=== PATIENT | female | born 1965 | race Caucasian/White ===

== ENCOUNTER 2016-05-26 01:03 | Inpatient (IN) | payer OTHER ==
[~2016-05-26] VITALS: Ht 167.6 cm; Wt 77.9 kg
--- NOTE | ~2016-05-26 | DS ---
PATIENT'S NAME: LEVY COULTER [facility] AGE: 50 Y [address] ROOM: [address] [address] LOCATION: G3N ADMIT DATE: 05/26/2016 Discharge Summary DISCHARGE DATE: 05/27/2016 FAMILY PHYSICIAN: Shelia Noel Beaver Trapper ATTENDING PHYSICIAN: Felice Bunn PRINCIPAL DIAGNOSES: 1. Acute pancreatitis. 2. Abdominal pain secondary to acute pancreatitis. 3. Depression. 4. Allergic rhinitis. HOSPITAL COURSE: Please reference any of the admitting data to the history and physical dictated by Dr. Bunn. This is a 50-year-old female, who came in with abdominal pain and significantly elevated pancreatic enzymes with an amylase of 1566 and lipase of 26,090, and evidence of acute pancreatitis noted on the CT scan of the abdomen and pelvis. Further evaluation done in the emergency room included an ultrasound of her abdomen, which did not show any cholelithiasis or cholecystitis. There was no intrahepatic or extrahepatic biliary dilatation. She also had a CT per PE protocol done, which was also negative. She was admitted and treated symptomatically. She was kept nothing by mouth. She was given antinausea and IV analgesia. She was given aggressive IV fluid hydration. Further investigation of the pancreatitis showed a triglyceride level of 62, inflammatory markers were negative. Rheumatoid factor was negative. She did have some subclinical hypothyroidism with a TSH of 6.020 but normal free T4 of 1.0. We did not feel it was related to alcohol. Further labs for autoimmune pancreatitis were sent and were pending at the time of this dictation. She progressed rather quickly. Gastroenterology consultation was obtained. Continued conservative observation. By the next day, her amylase and lipase fell to 273 and 909 respectively. She was started on a clear liquid diet and advanced as tolerated without any complications. Because of the quick turn around, it was felt that she was stable enough to return to home with further investigation warranted as an outpatient of her pancreatitis. She will need follow of the autoimmune laboratory findings as well as the potential for referral for an endoscopic ultrasound as there was maybe concern of biliary microlithiasis. DVT prophylaxis was maintained by pneumatic compression devices early and often ambulation. RADIOLOGY DATA: Chest x-ray showed no acute findings. CT of the abdomen and pelvis showed mesenteric inflammatory changes with a small volume of the adjacent fluid at the area of the pancreatic body and tail with slight wall PATIENT'S NAME: LEVY COULTER [facility] AGE: 50 Y [address] ROOM: [id number] [place], [place] [address] LOCATION: G3N ADMIT DATE: 05/26/2016 Discharge Summary DISCHARGE DATE: 05/27/2016 FAMILY PHYSICIAN: Shelia Noel Beaver Trapper ATTENDING PHYSICIAN: Felice Bunn thickening in the adjacent duodenum. There was also noted small volume free fluid in the pelvis, and a past history of hysterectomy. CT per PE protocol was negative. An abdominal ultrasound did not show any cholelithiasis or cholecystitis. There was no intrahepatic or extrahepatic biliary dilatation. LABORATORY FINDINGS: Her initial lactate was 2.2. Cardiac enzymes were negative. ProBNP was negative. White blood cells were normal. Hemoglobin was 15.0 and hematocrit of 43.9, and platelet count of 243. Chemistry panel revealed a glucose of 102, BUN of 8, creatinine 0.8, sodium 144, potassium 4.0, chloride 111, CO2 of 20, calcium 8.2. Liver function showed an AST of 33, ALT of 48, alkaline phosphatase of 69, total bilirubin of 0.4, direct bilirubin less than 0.1. Sedimentation rate was 5, CRP was 0.36, quantitative rheumatoid factor was less than 10. TSH was 6.020 and a free T4 1.0. Procalcitonin level was negative. Amylase level of 1566 to 273 and a lipase level of 26,090 to 909. IgG autoimmune laboratory findings are pending. CONSULTING PROVIDERS: Gastroenterology, Dr. Barrington Kirk. DISCHARGE MEDICATIONS: 1. Lexapro 10 mg p.o. every day. 2. Advil 600 mg p.o. every 6 hours as needed. 3. Flonase 50 mcg per puff one spray per nostril every day as needed. 4. Tessalon Perles 100 mg p.o. twice daily as needed. 5. Valtrex 500 mg p.o. 4 times daily as needed for cold sores. 6. Multivitamin 1 tablet p.o. every day. 7. Vitamin D3 1000 units p.o. every morning. DISCHARGE INSTRUCTIONS: The patient will be discharged to home. Her diet will be without restriction. Her activity will be without restriction. She was given a prescription for return to work on 05/29/2016 without any restrictions. She is to follow up with Dr. Noel at [facility] on Thursday June 02, 2016, at 10:00 a.m. She also needs to follow up with Thuy Bach, nurse-practitioner at [facility] on Friday June 10, 2016, at 1:00 p.m. to follow up on autoimmune labs and possible referral for endoscopic ultrasound. She was given education on her medications, and to call if there is any increase in pain or changes in her condition. Thank you for allowing us to participate in the care of this patient while at [facility]. DEB BRAVO APRN, APRN FOR SHIRIN RAYMUNDO MD PATIENT'S NAME: LEVY COULTER [facility] AGE: 50 Y [address] ROOM: [place] [address] LOCATION: [facility] ADMIT DATE: 05/26/2016 Discharge Summary DISCHARGE DATE: 05/27/2016 FAMILY PHYSICIAN: Shelia Noel Beaver Trapper ATTENDING PHYSICIAN: Felice Bunn/carmela /[id number] CC: Shelia Noel, Beaver Trapper Thuy Bach APRN d: t: 05/28/16 0451, DISCHARGE SUMMARY
--- NOTE | ~2016-05-26 | ER ---
PATIENT'S NAME: LEVY COULTER [facility] AGE: 50 Y [address] ROOM: [address] [address] LOCATION: [facility] ADMIT DATE: 05/26/2016 ER/Outpatient Report DISCHARGE DATE: FAMILY PHYSICIAN: BEVERLEY CANAS Sack Sorter ATTENDING PHYSICIAN: YOHAN RODRIGUEZ ADDENDUM: This patient is a 50-year-old female who comes in with severe epigastric pain that woke her up from sleep at midnight tonight. She came here to the emergency room. I did the evaluation. Her cardiac and pulmonary tests were normal. Her chest x-ray was normal. All of her lab was okay. Her ultrasound of the gallbladder was negative. She has no history of alcoholism but did have an elevated amylase and lipase that came back about half hour to an hour after the patient was dismissed home. Her amylase was elevated at 1566, her lipase was elevated at 26,090. I did call her back and told her to come back to the emergency department to be admitted with a diagnosis of acute pancreatitis. The patient did come back to the emergency department. We did place her in a room, started on IV normal saline, and aidan a lipid panel. Scheduled her for a CT scan of the abdomen and pelvis with IV contrast as well as a CT scan of the chest with PE protocol IV contrast. I did talk with Dr. Rodriguez, hospitalist. The patient will be admitted to the hospital for further evaluation and treatment. IMPRESSION: Acute pancreatitis. PLAN: Discussed with the patient and her my findings. She does have acute pancreatitis. Needs bowel rest and further evaluation. We will await results of CT scans. MANUELA GALVAN MD SDS/modl /[id number] d: 05/26/16 0449 t: 05/26/16 1814, OUTPATIENT REPORT
--- NOTE | ~2016-05-26 | ER ---
PATIENT'S NAME: LEVY COULTER [facility] AGE: 50 Y [address] ROOM: [place] [address] LOCATION: [facility] ADMIT DATE: 05/26/2016 ER/Outpatient Report DISCHARGE DATE: FAMILY PHYSICIAN: Shelia Noel Housetrailer Servicer ATTENDING PHYSICIAN: Marvin Maurer Admission date and time documented on the medical record. I saw the patient at 0120 hours. CHIEF COMPLAINT: Right upper quadrant abdominal pain and epigastric pain. HISTORY OF PRESENT ILLNESS: This patient is a 50-year-old female, who presented to the emergency room with pain right underneath her right lower rib cage in the right upper quadrant epigastric region. She had acute onset of pain that woke up out of sleep around midnight. Some nausea, but no vomiting or diarrhea. No urinary frequency, urgency, or dysuria. No cough. Short of breath because of the pain. No chest pain. No lightheadedness, dizziness, syncope, or near syncope. No fall or trauma. No recent colds, coughs, flus, fever, chills, or sweats. No headache, eyes, ears, nose, throat, neck, or spine pain. No joint or muscle swelling, redness, or pain. No skin eruptions or rash. No history of neuro changes, psych issues, endocrine problems. HOME MEDICATIONS: See attached medication list. ALLERGIES: SULFA. SOCIAL HISTORY: Nonsmoker. Occasional intake of alcohol. SIGNIFICANT PAST MEDICAL HISTORY: Negative. OPERATIONS: Hysterectomy. REVIEW OF SYSTEMS: All systems reviewed by me are negative with the exception of those discussed in the history of present illness. PHYSICAL EXAMINATION: VITAL SIGNS: Temperature 96.3, pulse 61, respirations 20, blood pressure PATIENT'S NAME: LEVY COULTER [facility] AGE: 50 Y [address] ROOM: [place], [place] [address] LOCATION: [facility] ADMIT DATE: 05/26/2016 ER/Outpatient Report DISCHARGE DATE: FAMILY PHYSICIAN: Shelia Noel Housetrailer Servicer ATTENDING PHYSICIAN: Marvin Maurer 140/75, O2 saturation on room air is 100%. [place] Coma Scale is 15. HEAD: Normocephalic. No abrasion, contusion, laceration, swelling of the scalp or face. EYES: Extraocular muscles intact. PERRL. EARS: Clear TMs bilaterally. NOSE: Clear. THROAT: Clear. Mucous membranes moist. Teeth, jaw intact. NECK: No nuchal rigidity. No thyromegaly or cervical lymphadenopathy. No tenderness to palpation. SPINE: Nontender. No deformity. LUNGS: Clear. Good air flow. No rales, rhonchi, or wheezes. HEART: Regular. Pulses are palpable. ABDOMEN: Soft. Some tenderness right underneath the lower rib cage in the right upper quadrant and epigastric area. No palpable masses. No organomegaly palpable. Bowel tones present. No CVA tenderness. No true guarding or rigidity. No rebound tenderness. No distention. EXTREMITIES: Intact. Neurovascularly intact. SKIN: Clear. IMAGING DATA: Chest x-ray showed no acute infiltrate or changes. We will review x-ray with the radiologist. EKG showed sinus rhythm. No acute ST elevation, ischemic change, or arrhythmia. LABORATORY DATA: White count was 8900, 53 segs, 33 lymphs, 6 monos, 7 eos, 1 baso. Hemoglobin is 15 with hematocrit 43.9, platelet count [id number], sed rate was 5, PTT was 23. ProTime is 10 with an INR 1.0. CRP was less than 0.29. TSH was 6.02. ProBNP was 109. CMS was normal except for a low CO2 content of 21, elevated glucose 107, elevated AST of 67, magnesium 1.7. CPK was 85. Point of care cardiac enzymes were normal. D-dimer was 0.6. Lactate was 2.2. Procalcitonin was 0.5. IMAGING DATA: I did do an ultrasound of the gallbladder that showed normal gallbladder. No pericholecystic fluid. No gallstones. No thickened gallbladder wall. Normal duct. Everything else looked normal of the abdomen. See dictated transcribed Radiology report. IMPRESSION: Epigastric right upper quadrant abdominal pain, etiology; uncertain most likely acute gastritis. I find no evidence of any gallbladder changes, liver changes or lab studies. Chest x-ray and heart enzymes were normal. PLAN: The patient was given IV morphine for pain, GI cocktail orally, Zofran for PATIENT'S NAME: LEVY COULTER [facility] AGE: 50 Y [address] ROOM: [place] [address] LOCATION: ED ADMIT DATE: 05/26/2016 ER/Outpatient Report DISCHARGE DATE: FAMILY PHYSICIAN: Shelia Noel Housetrailer Servicer ATTENDING PHYSICIAN: Marvin Maurer nausea, Protonix 40 mg IV in the emergency room. Discharged home. Observation. Activity as tolerated. Avoid spicy, greasy, fried foods, alcohol, nicotine caffeine. Amo diet. Continue home medications and care. Prevacid 30 mg once a day #30 and Percocet 10/325 as need for pain #16. Follow up with personal physician in 4 or 5 days or sooner if needed. Discussion ensued with the patient regarding my findings and recommendations, she understands. MD SHANTI GIFFORD/falgunil /[id number] d: 05/26/16 0408 t: 05/26/16 181, OUTPATIENT REPORT
--- NOTE | ~2016-05-26 | HP ---
PATIENT'S NAME: LEVY COULTER [facility] AGE: 50 Y [address] ROOM: [place] [address] LOCATION: [facility] ADMIT DATE: 05/26/2016 History & Physical DISCHARGE DATE: FAMILY PHYSICIAN: BEVERLEY CANAS Vial Gauger ATTENDING PHYSICIAN: YOHAN RODRIGUEZ DATE OF SERVICE: CHIEF COMPLAINT: Epigastric pain for 1 day duration. HISTORY OF PRESENT ILLNESS: This is a 50-year-old female who is generally healthy and never complaining of any chest pain or shortness of breath or epigastric pain or any abdominal pain in the past. The story is that tonight she had a pizza, about 2 slices of pizza, around 7:00 p.m. for dinner, and then she went to bed, and then around midnight, she woke up with this pain in her epigastric area, 8/10 intensity, that it feels like a stabbing type of pain with radiation to her back. The pain lasted about 10 minutes and then will go away. The pain is also associated with nausea but no vomiting. The pain went away for a while, but then it came back, that is why she came here to the emergency room for evaluation. The patient has never had this kind of pain before. The patient denies any alcohol intake, and denies ever being told she had a gallstone, and denies any gastroesophageal reflux disease from before. Her last meal was last night. Her last bowel movement was yesterday morning, and she still passes flatus. She denies any other symptoms. REVIEW OF SYSTEMS: As mentioned in the history of present illness. All other systems reviewed and negative except those mentioned in the history of present illness. PAST MEDICAL HISTORY: 1. Depression. 2. Allergy. ALLERGIES: SULFA, WHICH CAUSES RASH. HOME MEDICATIONS: She uses Flonase and takes Lexapro, doses are not known and will be reconciled with the pharmacy. SOCIAL HISTORY: The patient denies any cigarette or heavy alcohol or illegal drug use. She only occasionally drinks alcohol, and she denies any alcohol use disorder. PATIENT'S NAME: LEVY COULTER [facility] AGE: 50 Y [address] ROOM: [place] [address] LOCATION: [facility] ADMIT DATE: 05/26/2016 History & Physical DISCHARGE DATE: FAMILY PHYSICIAN: BEVERLEY CANAS Vial Gauger ATTENDING PHYSICIAN: YOHAN RODRIGUEZ PAST SURGICAL HISTORY: 1. Status post hysterectomy. 2. Status post tonsillectomy. 3. Status post right shoulder surgery from rotator cuff injury. FAMILY HISTORY: Father from multiple myeloma complication at age 70 and mother suffers from hypertension. No colon cancer and no gastrointestinal disorder in the family according to the patient. PHYSICAL EXAMINATION: VITAL SIGNS: At the time of my dictation, temperature 98, heart rate 80, blood pressure 130/80, respiration 16, and saturation 99% on room air. GENERAL APPEARANCE: Alert and oriented x3. In no acute distress. A very pleasant female. HEENT: Pupils equally round and reactive to light. Extraocular muscles intact. Anicteric sclerae. Nasal turbinates are normal bilaterally. Moist oral mucosa. No oral thrush. NECK: No JVD. No cervical lymphadenopathy. No neck stiffness. CARDIOVASCULAR: Regular rate and rhythm. Normal S1, S2. No murmurs, no rubs, no gallops. RESPIRATORY: Clear. ABDOMEN: Soft, mild tenderness to palpation in the epigastrium and in the right upper quadrant. No rebound tenderness. No abdominal rigidity. Bowel sounds present. Could not appreciate any hepatosplenomegaly. EXTREMITIES: No edema in the upper or lower extremities. NEUROLOGIC: Grossly nonfocal. SKIN: No ulcer, no rash, no cyanosis. MUSCULOSKELETAL: No joint pain. No muscle pain. Range of motion intact. LABORATORY DATA: Lactic acid 2.2. CPK 85. Troponin is less than 0.04. ProBNP 109. White blood cells 8.7, hemoglobin 15, hematocrit 43.9, MCV 93.2, platelets 243. Glucose 107. BUN 17, creatinine 1.0, sodium 143, potassium 3.7, chloride 109, CO2 of 21, calcium 9.2, total protein 7.1, albumin 3.7, AST 67, ALT 52, alkaline phosphatase 88, total bilirubin 0.3, magnesium 1.7, anion gap 16.7, GFR 58, ESR 5. Total cholesterol 164, triglycerides 62, HDL 65, LDL 87, VLDL 12. INR 1.0, PTT 23. Procalcitonin less than 0.05. CRP is less than 0.029. TSH 6.02. CK-MB 0.8. Lipase 26,090, amylase 1566. D-dimer 0.6. IMAGING STUDIES: EKG on admission showed sinus bradycardia, heart rate at 58 beats per minute with normal PA at 197, normal QRS at 94, normal QTc at 399, and no acute ischemia. PATIENT'S NAME: LEVY COULTER [facility] AGE: 50 Y [address] ROOM: [place] [address] LOCATION: [facility] ADMIT DATE: 05/26/2016 History & Physical DISCHARGE DATE: FAMILY PHYSICIAN: BEVERLEY CANAS Vial Gauger ATTENDING PHYSICIAN: YOHAN RODRIGUEZ Chest x-ray on admission, official report is pending, based on my review unremarkable. Ultrasound of the abdomen performed in the emergency room, official report is pending, but based on the documentation in the ER note, it was unremarkable. Again, this is based on the ER report written by the ER physician. Please follow up on the official report this morning. CT pulmonary angiogram on admission, preliminary report shows peripancreatic inflammatory changes suggesting acute pancreatitis. No pulmonary emboli. Mild mediastinal lymphadenopathy. CT of abdomen and pelvis with IV contrast on admission: The preliminary report shows mild inflammatory changes and a small free fluid adjacent to the pancreatic body and the tail. Mild wall thickening of the distal duodenum. Findings likely represent acute pancreatitis with reactive wall thickening of the duodenum. However, primary duodenitis is not excluded. Small pelvic free fluid. Hysterectomy. ASSESSMENT AND PLAN: 1. Acute pancreatitis with a possible reactive wall thickening of the duodenum; however, cannot exclude primary duodenitis: Currently, the cause of the pancreatitis is not clear. She does not drink alcohol. She does not have gallstone based on the preliminary report of the ultrasound of the abdomen performed today. Her home medications do not cause pancreatitis either. Her triglyceride level is also not more than 1000. She has no obvious risk factor for pancreatitis. I suspect she might be suffering from autoimmune pancreatitis or even with pancreatic divisum. I will get a GI consult. I will treat her conservatively with n.p.o. and IV fluids hydration, and also pain control with IV morphine p.r.n. and IV fentanyl p.r.n. I will check IgG4 in the serum to look for autoimmune pancreatitis. Further plan depends on clinical course and per GI evaluation. She does not look septic. There is no necrosis on the CT scan, preliminary report of the pancreatitis; therefore, I am not going to start any antibiotics. The duodenitis could be primary or could be from reactive wall thickening of the duodenum. I will defer evaluation per Gastroenterology and also follow up on the official report of the CT abdomen and pelvis and ultrasound of the abdomen and also CT pulmonary angiogram once the report becomes official. 2. Regarding her possible hypothyroidism: Her TSH is elevated. This is consistent with hypothyroidism. However, I am going to check her free T4 to make sure this is not a subclinical hypothyroidism. Therefore, I will check a free T4, and then depend on the level, we can decide about treatment. PATIENT'S NAME: LEVY COULTER [facility] AGE: 50 Y [address] ROOM: [place] [address] LOCATION: [facility] ADMIT DATE: 05/26/2016 History & Physical DISCHARGE DATE: FAMILY PHYSICIAN: BEVERLEY CANAS Vial Gauger ATTENDING PHYSICIAN: YOHAN RODRIGUEZ 3. Depression: Continue her home medication with Lexapro. 4. Allergic rhinitis: Continue with Flonase. 5. Prophylaxis: Compression devices and heparin subcu. Time spent in care on the day of admission 40 minutes including chart review, interviewing and examining the patient, addressing all the questions and concerns the patient had, and going over the plan of care with the patient and the patient's . YOHAN RODRIGUEZ MD CC/modl /[id number] D: [id number] T: [id number] HISTORY & PHYSICAL
--- NOTE | ~2016-05-26 | CON ---
PATIENT'S NAME: LEVY COULTER [facility] AGE: 50 Y [address] ROOM: [address] [address] LOCATION: [id number] ADMIT DATE: 05/26/2016 Consultation DISCHARGE DATE: FAMILY PHYSICIAN: BEVERLEY CANAS Electronic Heat Seal Operator ATTENDING PHYSICIAN: FELICE RODRIGUEZ DATE OF CONSULTATION: 05/26/2016 REFERRING PHYSICIAN: LEOLA MAYORGA MD REFERRING PROVIDER: Felice Rodriguez MD REASON FOR CONSULTATION: Acute pancreatitis. HISTORY OF PRESENT ILLNESS: This is a very pleasant, 50-year-old female who is generally healthy and works at [employer]. She does state that yesterday evening she had 2 slices of pizza around 7 o'clock p.m. for dinner. She went to bed. Around midnight, she woke up with intense mid epigastric discomfort, rating it 8/10. She describes the pain as stabbing pain with radiation into her back. The pain was intermittent for approximately 10 minutes and then did go away. After a while, it retreated back with associated nausea. She denies vomiting at that time, fever, or chills. The patient denies any previous episodes of pain like this. She then presented to the emergency room for further workup. An abdominal ultrasound was completed, showing no cholelithiasis and no intrahepatic or extrahepatic biliary dilation. On analysis completed in the emergency room of lab, she was found to have a significantly elevated lipase at 26,090. Amylase was 1566. Triglyceride level was okay at 62. ESR was 5. Lactate was 2.2. Calcium was 9.2. The patient was then admitted for acute pancreatitis workup and treatment. The patient was seen and examined. Again, she denies any history of pancreatitis and/or family history of any known pancreatitis. The patient also denies any alcohol intake. Denies any history of gallstone or gastroesophageal reflux disease. The patient does state that she had a normal bowel movement the day prior to admission. She currently is passing flatus. She denies any fever or chills. She does state that her abdominal pain has significantly improved since the initial episode began. The patient currently denies any chest pain, chest pressure, shortness of breath, fever, chills, night sweats, or unplanned weight loss. The patient also denies any history of upper endoscopy or colonoscopy. PAST MEDICAL HISTORY: Depression and allergies. PATIENT'S NAME: LEVY COULTER [facility] AGE: 50 Y [address] ROOM: [address] [address] LOCATION: [facility] ADMIT DATE: 05/26/2016 Consultation DISCHARGE DATE: FAMILY PHYSICIAN: BEVERLEY CANAS Electronic Heat Seal Operator ATTENDING PHYSICIAN: FELICE RODRIGUEZ PAST SURGICAL HISTORY: No history of upper endoscopy or colonoscopy. Hysterectomy, tonsillectomy, and right shoulder surgery from rotator cuff injury. 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 She denies any cigarette, alcohol, or illicit drug use. She does state that she drinks alcohol on a very limited social basis, though denies any alcohol use disorder. FAMILY HISTORY: The patient's father from multiple myeloma at the age of 70. The patient's mother suffers from hypertension. She denies any gastrointestinal diseases or cancers. ALLERGIES: SULFA AND SULFAMETHOXAZOLE. CURRENT MEDICATIONS: Please refer to the medication administration record. REVIEW OF SYSTEMS: A 10-point review of systems was completed, all were negative except for those identified in the History of Present Illness. PHYSICAL EXAMINATION: GENERAL: A very pleasant, 50-year-old female who appears to be in no acute distress. VITAL SIGNS: Temperature 97.8, pulse of 56, respirations of 15, blood pressure 105/63, and oxygen saturation is 99% for room air. SKIN: Sophia, warm, and dry. No jaundice. HEENT: Head is normocephalic and atraumatic. Pupils are equal, round, and reactive to light. Sclerae are clear, nonicteric. Oral mucosa is pink and moist. No thyromegaly. NECK: Soft and supple. CARDIOVASCULAR: Regular. Normal S1 and S2. RESPIRATORY: Respirations even and unlabored. Lungs are clear to auscultation. ABDOMEN: Soft and round. Tender in the mid epigastric area as well as the right and left upper quadrants. No rebound, rigidity, or guarding noted. Bowel sounds positive x4 quadrants. MUSCULOSKELETAL: No muscle weakness or atrophy. EXTREMITIES: No clubbing, cyanosis, or edema. NEUROLOGIC: Grossly nonfocal. PATIENT'S NAME: LEVY COULTER [facility] AGE: 50 Y [address] ROOM: [id number] [place], [place] [address] LOCATION: [facility] ADMIT DATE: 05/26/2016 Consultation DISCHARGE DATE: FAMILY PHYSICIAN: BEVERLEY CANAS Electronic Heat Seal Operator ATTENDING PHYSICIAN: FELICE RODRIGUEZ LABORATORY AND DIAGNOSTIC DATA: Lactate of 2.2. Cardiac enzymes were all within normal limits. CPK of 85, troponin 0.040, and BNP 109. White blood cell count 8.7, hemoglobin of 15.0, hematocrit of 43.9, and platelets of 243. Chemistry panel includes a glucose of 107, BUN of 17, creatinine 1.0, sodium 143, potassium of 3.7, chloride of 109, and CO2 of 21. Albumin of 3.7. Calcium of 9.2. AST of 67, ALT of 52, and alkaline phosphatase of 88. Total bilirubin 0.3. Magnesium of 1.7. ESR of 5. Lipid panel included a cholesterol of 164, triglycerides of 62, HDLC of 65, VLDL of 12, and LDL of 87. Prothrombin time 10.0, INR was 1.0, and PTT of 23. Free T4 was 1.0. Procalcitonin less than 0.05. Amylase of 1566 and lipase was 26,090. CRP was less than 0.29. D-dimer was 0.60. The patient did undergo an abdominal ultrasound showing no cholelithiasis or ductal dilation. A chest x-ray was also completed, showing no vascular congestion or acute parenchymal infiltrates identified on chest study. There is a CT abdomen and pelvis currently pending at this time. A CT, PE protocol, was also completed, showing no findings of pulmonary embolism. ASSESSMENT AND PLAN: Again, this is a very pleasant 50-year-old female who was recently admitted with the first bout of acute pancreatitis of unknown etiology. The patient denies any alcohol use. Per ultrasound, no gallstones were seen. Triglyceride level and calcium level are all within normal limits. IgG4 is pending at this time. We will await for IgG4 level to be resulted to rule out autoimmune pancreatitis. At this time, the patient is recommended to continue IV hydration aggressively as well as n.p.o. status. The patient's pain has significantly improved where the patient may be advanced to clear liquids possibly later today. Further workup to rule out biliary microlithiasis may be warranted as an outpatient with Endoscopic Ultrasound. Further recommendations to be given per Dr. Leola Mayorga. Thank you for this consult and allowing us to participate in the care of this patient. We will continue to monitor, evaluate, and treat as appropriate. VEDA CLEVELAND APRN FOR MD NICOLE ROJAS/carmela /[id number] d: 05/26/16 1145 t: 06/18/16 0735, CONSULTATION REPORT
[2016-05-26 01:51] LABS: BASOPHIL % 0.5 %; EOSINOPHIL # 0.6 K/uL (0.0-0.5); HEMATOCRIT 43.9 % (33.0-46.0); IMMATURE GRANULOCYTE # 0.1 K/uL (0.0-0.3); IMMATURE GRANULOCYTE % 0.8 %; LYMPHOCYTE # 2.9 K/uL (0.8-4.0); LYMPHOCYTE % 32.8 %; MCH 31.8 pg (27.0-34.0); MCHC 34.2 gm/dL (32.0-36.5); MCV 93.2 fl (83.0-98.0); MONOCYTE # 0.5 K/uL (0.0-1.0); MONOCYTE % 6.2 %; MPV 9.8 fl (9.4-12.4); NEUTROPHIL # (ANC) 4.6 K/uL (1.8-7.8); NEUTROPHIL % 52.7 %; NRBC % 0 /100WBC (0-0.00); PLATELET COUNT 243 K/uL (150-450); RBC 4.71 M/uL (3.50-5.50); RDW-CV 11.2 % (11.9-14.6); WBC 8.7 K/uL (4.0-11.0)
[2016-05-26 02:10] LABS: PTT 23 SECONDS (25-32)
[2016-05-26 02:27] LABS: ALBUMIN 3.7 gm/dL (3.5-5.0); ALK PHOS 88 IU/L (33-138); ALT 52 IU/L (12-78); ANION GAP 16.7 (10.0-19.0); AST 67 IU/L (10-40); BLOOD UREA NITROGEN 17 mg/dL (6-24); CALCIUM 9.2 mg/dL (8.5-10.5); CHLORIDE 109 mMol/L (96-110); CO2 21 mMol/L (22-32); CPK 85 IU/L (21-215); ESTIMATED GFR (MDRD EQUATION) 58; MAGNESIUM 1.7 mg/dL (1.3-2.6); POTASSIUM 3.7 mMol/L (3.7-5.1); SODIUM 143 mMol/L (135-145); TOTAL BILIRUBIN 0.3 mg/dL (0.0-1.5); TOTAL PROTEIN 7.1 g/dL (6.0-8.4)
--- NOTE | 2016-05-26 09:56 | NUR ---
Pt is a 50 y/o female admit for abd pain/pancreatitis for hospitalist. Pt alert and oriented x3. no c/o pain. Allergy to Sulfa-red bracelet on. Hx sinus problems,hayfever,anxiety. Resides at home with her . Came to the ED yesterday and had lab work and tests done. Pt sent home and came back early this am due to no improvement. Pancreatic enzymes elevated. NPO for now. May advance to clear liquids this evening. Awaiting further lab results.
[2016-05-26] MEDS ORDERED: FLONASE 50 MCG/16 GM NOSE (11:42)
[2016-05-26] MEDS ORDERED: ADVIL200 MG PO (11:43)
[2016-05-26] MEDS ORDERED: AUGMENTIN 875-1 EACH PO (11:44)
[2016-05-26] MEDS ORDERED: TESSALON PERLE100 MG PO (11:45)
[2016-05-26] MEDS ORDERED: VALTREX500 MG PO (11:46)
[2016-05-26] MEDS ORDERED: LEXAPRO10 MG PO (11:47)
[2016-05-26] MEDS ORDERED: VITAMIN D1000 UNIT PO (11:47)
[2016-05-26] MEDS ORDERED: THERAGRAN-M1 TAB PO (11:47)
--- NOTE | 2016-05-26 14:05 | NUR ---
Patient admitted this morning for pancreatitis. Has upper right quadrant pain that is sharp. Morphine 1mg Q 2hrs IV push given for pain. IV to left hand running at 100ml/hr. When this bag is finished, need to call hopitalist for further orders on fluids. Up with SBA.
--- NOTE | 2016-05-27 04:42 | NUR ---
Significant Event: Vitals stable. R) upper quadrant abdominal pain, describes it as aching and tender, rates 4-5/10. Morphine 1 mg given X3 this shift. Bowel sounds hypoactive. Up to bathroom with minimal assist. NS+D5W running @ 100ml/hr, will next to call hospitalist with further order for IV fluid when this bag is finished. IV to R) hand. Clear liquid diet, has only had 350ml PO this shift, but has tolerated well. Follow up:
[2016-05-27 05:29] LABS: BASOPHIL % 0.7 %; EOSINOPHIL # 0.6 K/uL (0.0-0.5); EOSINOPHIL % 10.7 %; HEMATOCRIT 37.1 % (33.0-46.0); HEMOGLOBIN 12.4 g/dL (10.0-15.0); IMMATURE GRANULOCYTE % 0.5 %; LYMPHOCYTE # 1.9 K/uL (0.8-4.0); LYMPHOCYTE % 35.2 %; MCH 32.3 pg (27.0-34.0); MCHC 33.4 gm/dL (32.0-36.5); MCV 96.6 fl (83.0-98.0); MONOCYTE # 0.5 K/uL (0.0-1.0); MONOCYTE % 8.9 %; MPV 9.5 fl (9.4-12.4); NEUTROPHIL # (ANC) 2.4 K/uL (1.8-7.8); NRBC % 0 /100WBC (0-0.00); PLATELET COUNT 205 K/uL (150-450); RBC 3.84 M/uL (3.50-5.50); RDW-CV 11.5 % (11.9-14.6); WBC 5.5 K/uL (4.0-11.0)
[2016-05-27 05:53] LABS: ALBUMIN 2.9 gm/dL (3.5-5.0); ALK PHOS 69 IU/L (33-138); ALT 48 IU/L (12-78); AST 33 IU/L (10-40); CALCIUM 8.2 mg/dL (8.5-10.5); CHLORIDE 111 mMol/L (96-110); CO2 28 mMol/L (22-32); CREATININE 0.8 mg/dL (0.5-1.1); ESTIMATED GFR (MDRD EQUATION) > 60; SODIUM 144 mMol/L (135-145); TOTAL PROTEIN 5.6 g/dL (6.0-8.4)
[2016-05-27 05:54] LABS: BLOOD UREA NITROGEN 8 mg/dL (6-24); TOTAL BILIRUBIN 0.4 mg/dL (0.0-1.5)
--- NOTE | 2016-05-27 10:10 | NUR ---
Introduced self to patient and her Bert. They live in [place]. Are hoping to go home today but awaiting word if that will happen. They didn't need any additional DME. has rearranged his schedule so will be home for awhile. No needs at this time. Wrote my name on her marker board.
--- NOTE | 2016-05-27 12:00 | NUR ---
SPOKE TO PATIENT REGARDING CM AND OUR ROLE. PATIENT LIVES IN OWN HOME WITH SPOUSE SHE IS HOPING TO GO HOME LATER TODAY. PATIENT DOES NOT ANTICIPATE ANY DISCHARGE NEEDS AT THIS TIME. CM WILL FOLLOW NEEDED.
--- NOTE | 2016-05-27 16:07 | NUR ---
Patient was alert and oriented x3. VSS. Up with SBA. Patient complained of no pain. Patient was walked out to front door for dismissal.
== END 2016-05-27 16:00 | disposition disaster alternative care site (69) | DRG 440 ==
LOC: GMED 01:03 → G3N 04:15
PROVIDERS: Emergency Medicine; ADMIT Internal Medicine
DX: K85.90 Acute pancreatitis without necrosis or infection, unspecified (principal); F32.9 Major depressive disorder, single episode, unspecified; J30.9 Allergic rhinitis, unspecified
CPT/HCPCS: C9113; J2270; J2405; J7030; J7042; Q9967

== ENCOUNTER → 2016-07-27 | Day surgery (SDC) | payer OTHER ==
[~2016-07-27] VITALS: Ht 154.9 cm; Wt 71.0 kg
[~2016-07-27] MED LIST: ADVIL200 MG PO; AUGMENTIN 875-1 EACH PO; FLONASE 50 MCG/16 GM NOSE; LEXAPRO10 MG PO; TESSALON PERLE100 MG PO; THERAGRAN-M1 TAB PO; VALTREX500 MG PO; VITAMIN D1000 UNIT PO
== END | disposition disaster alternative care site (69) ==
LOC: GPOC 07-20 14:00 → GEND 06:50 → GPOC 14:00 → GEND 14:00
PROC: 0DJ08ZZ Inspection of Upper Intestinal Tract, Via Natural or Artificial Opening Endoscopic (ICD-10-PCS; principal; 2016-07-27)
PROC: BD47ZZZ Ultrasonography of Gastrointestinal Tract (ICD-10-PCS; 2016-07-27)
PROC: 0DJD8ZZ Inspection of Lower Intestinal Tract, Via Natural or Artificial Opening Endoscopic (ICD-10-PCS; 2016-07-27)
DX: Z12.11 Encounter for screening for malignant neoplasm of colon (principal); K85.00 Idiopathic acute pancreatitis without necrosis or infection; Z88.0 Allergy status to penicillin; Z79.899 Other long term (current) drug therapy
CPT/HCPCS: J2001; J7030

== ENCOUNTER → 2016-10-02 | Outpatient (CLI) | payer OTHER | END | disposition disaster alternative care site (69) | LOC: GBCOE 13:00 | DX: Z12.31 Encounter for screening mammogram for malignant neoplasm of breast (principal) | CPT/HCPCS: G0202 ==